=== PATIENT | female | born 1970 ===

== ENCOUNTER 2024-01-28 07:05 | Day surgery (SDC) | payer BC ==
[~2024-01-28] VITALS: Ht 177.8 cm; Wt 60.2 kg
[~2024-01-28 07:05] MED LIST: LR 1,000 ML IV SCH; Ondansetron 4 MG/2 ML VIAL IV PRN
[2024-01-28] MEDS ORDERED: Lidocaine PF 2% (20 MG/ML) 5 ML VIAL ONE (08:30)
[2024-01-28] MEDS ORDERED: IMURAN 50MG TAB50 MG PO (08:31)
[2024-01-28] MEDS ORDERED: MULTI VITAMINS1 TAB PO (08:32)
[2024-01-28] MEDS ORDERED: LIALDA 1.2 GM1.2 GM PO (08:32)
[2024-01-28 08:39] VITALS: BP 110/70; PULSE 63; TEMP 97.7
[2024-01-28 09:25] VITALS: BP 108/89; PULSE 60; TEMP 97.5
[2024-01-28 09:40] VITALS: BP 106/94; PULSE 56
[2024-01-28 09:55] VITALS: BP 114/79; PULSE 60
--- NOTE | 2024-01-28 10:00 | NUR ---
0925 RETURNS TO ROOM 7 PER CART. AWAKE, ALERT. RESP UNLABORED. AMBULATES TO RECLINER WITH STANDBY ASSIST. DENIES NAUSEA OR ABD PAIN. VITAL SIGNS OBTAINED. CALL LIGHT AT SIDE. SIGNIFICANT OTHER IN ROOM 0940 TOLERATES PO JUICE WITHOUT NAUSEA. DISCHARGE INSTRUCTIONS REVIEWED. PATIENT VERBALIZES UNDERSTANDING. COPY PROVIDED IN DISCHARGE FOLDER [id number] DR SCHUSTER HERE TO VISIT WITH PATIENT [id number] DRESSES SELF
== END 2024-01-28 10:00 | disposition home or self-care (01) ==
LOC: SDCO 07:05
DX: Z12.11 Encounter for screening for malignant neoplasm of colon (principal); Z86.010 Personal history of colon polyps; K50.00 Crohn's disease of small intestine without complications; K63.89 Other specified diseases of intestine; K62.89 Other specified diseases of anus and rectum
CPT/HCPCS: J2704; J7120